=== PATIENT | male | born 1960 | race Caucasian/White ===

== ENCOUNTER 2021-07-05 07:35 | Outpatient (REF) | payer BC, SELFPAY ==
[2021-07-05 10:41] LABS: MANUAL DIFF FLAG NO
[2021-07-05 10:48] LABS: Basophils Percent Auto 0.8 % (0-2); Eosinophils Absolute Auto 0.1 X10*3/uL (0.0-0.4); Eosinophils Percent Auto 2.5 % (0-4); Hematocrit 41.4 % (42-52); Hemoglobin 14.2 g/dl (14.0-18.0); Imm Gran Abs Auto 0.01 X10*3/uL (0.00-0.03); Imm Gran Pct Auto 0.2 % (0.0-0.4); Mean Corpuscular HGB Conc 34.3 g/dl (31.0-36.0); Mean Corpuscular Hemoglobin 33.1 pg (27.0-33.0); Mean Corpuscular Volume 96.5 fL (80-98); Mean Platelet Volume 9.7 fL (9.4-12.4); Monocytes Absolute Auto 0.5 X10*3/uL (0.1-1.2); Neutrophils Absolute Auto 2.6 X10*3/uL (2.0-8.3); Neutrophils Percent Auto 49.5 % (45-73); Platelet Count 171 X10*3/uL (160-400); Red Blood Count 4.29 X10*6/uL (4.60-5.80); Red Cell Distribution Width 12.9 % (11.0-16.0); White Blood Count 5.2 X10*3/uL (4.8-10.8)
[2021-07-05 10:59] LABS: Alanine Aminotransferase 13 U/L (0-40); Albumin Level 4.1 g/dL (3.5-5.0); Alkaline Phosphatase 44 U/L (39-117); Anion Gap 11 (12-20); Aspartate Amino Transferase 17 U/L (5-37); Bilirubin Total 0.6 mg/dL (0.0-1.0); Blood Urea Nitrogen 15 mg/dL (9-16); Calcium 9.5 mg/dL (8.4-10.2); Carbon Dioxide 27 mmol/L (22-29); Chloride 106 mmol/L (96-108); Cholesterol 204 mg/dL; Estimated Glomerular Filt Rate > 60; Glucose Fasting 95 mg/dL (60-99); HDL Cholesterol 46 mg/dL; LDL Cholesterol Calculated 141 mg/dl; Potassium 4.3 mmol/L (3.3-5.1); Sodium 140 mmol/L (135-145); Total Protein 6.6 g/dL (6.5-8.0); Triglycerides 87 mg/dL
[2021-07-05 11:16] LABS: ~HepC Num1 0.13 S/CO (0.00-0.79); ~Hepatitis C Antibody Nonreactive (Nonreactive)
[2021-07-05 11:20] LABS: Prostate Specific Antigen 0.53 ng/mL (<0.05-4.0); Vitamin D 25-OH Total 27.5 ng/mL (>30)
== END 2021-07-05 07:36 | disposition home or self-care (01) ==
LOC: HO.MANLDS 07:35
PROVIDERS: PCP Internal Medicine; Visit Provider Internal Medicine
DX: Z00.00 Encounter for general adult medical examination without abnormal findings (principal); Z12.5 Encounter for screening for malignant neoplasm of prostate; Z11.59 Encounter for screening for other viral diseases
CPT/HCPCS: 36415; 80053; 80061; 82306; 84153; 85025; 86803

== ENCOUNTER 2022-12-10 07:54 | Outpatient (REF) | payer BC, SELFPAY ==
[2022-12-10 11:34] LABS: MANUAL DIFF FLAG NO
[2022-12-10 12:01] LABS: Basophils Percent Auto 0.6 % (0-2); Eosinophils Absolute Auto 0.1 X10*3/uL (0.0-0.4); Eosinophils Percent Auto 2.6 % (0-4); Hematocrit 44.6 % (42.0-52.0); Hemoglobin 15.1 g/dl (14.0-18.0); Imm Gran Abs Auto 0.01 X10*3/uL (0.00-0.03); Imm Gran Pct Auto 0.2 % (0.0-0.4); Lymphocytes Absolute Auto 2.2 X10*3/uL (1.2-4.9); Lymphocytes Percent Auto 39.7 % (20-40); Mean Corpuscular HGB Conc 33.9 g/dl (31.0-36.0); Mean Corpuscular Volume 94.5 fL (80.0-98.0); Mean Platelet Volume 10.5 fL (9.4-12.4); Monocytes Absolute Auto 0.5 X10*3/uL (0.1-1.2); Monocytes Percent Auto 9.4 % (2-11); Neutrophils Absolute Auto 2.6 x10*3/uL (2.0-8.3); Neutrophils Percent Auto 47.5 % (45-73); Platelet Count 167 X10*3/uL (160-400); Red Blood Count 4.72 X10*6/uL (4.60-5.80); Red Cell Distribution Width 12.3 % (11.0-16.0); White Blood Count 5.4 X10*3/uL (4.8-10.8)
[2022-12-10 13:17] LABS: Alanine Aminotransferase 28 U/L (0-40); Albumin Level 4.2 g/dL (3.5-5.0); Alkaline Phosphatase 46 U/L (39-117); Anion Gap 16 (12-20); Aspartate Amino Transferase 25 U/L (5-37); Bilirubin Total 0.8 mg/dL (0.0-1.0); Blood Urea Nitrogen 17 mg/dL (9-16); Calcium 9.1 mg/dL (8.4-10.2); Carbon Dioxide 23 mmol/L (22-29); Chloride 105 mmol/L (96-108); Cholesterol 197 mg/dL; Estimated Glomerular Filt Rate > 60; Glucose Random 95 mg/dL (60-115); HDL Cholesterol 43 mg/dL; LDL Cholesterol Calculated 133 mg/dl; Potassium 4.3 mmol/L (3.3-5.1); Sodium 140 mmol/L (135-145); Total Protein 6.8 g/dL (6.5-8.0); Triglycerides 105 mg/dL
[2022-12-10 13:48] LABS: Prostate Specific Antigen 0.56 ng/mL (<0.05-4.0)
== END 2022-12-10 07:55 | disposition home or self-care (01) ==
LOC: HO.MANLDS 07:54
PROVIDERS: Visit Provider Internal Medicine
DX: Z00.00 Encounter for general adult medical examination without abnormal findings (principal); Z12.5 Encounter for screening for malignant neoplasm of prostate
CPT/HCPCS: 36415; 80053; 80061; 82306; 84153; 84443; 85025

== ENCOUNTER 2023-12-30 07:32 | Outpatient (REF) | payer BC, SELFPAY ==
[2023-12-30 12:44] LABS: MANUAL DIFF FLAG NO
[2023-12-30 13:07] LABS: Basophils Absolute Auto 0.1 X10*3/uL (0.0-0.2); Basophils Percent Auto 0.8 % (0-2); Eosinophils Absolute Auto 0.2 X10*3/uL (0.0-0.4); Eosinophils Percent Auto 2.7 % (0-4); Hematocrit 43.7 % (42.0-52.0); Hemoglobin 14.6 g/dl (14.0-18.0); Imm Gran Abs Auto 0.01 X10*3/uL (0.00-0.03); Imm Gran Pct Auto 0.2 % (0.0-0.4); Lymphocytes Absolute Auto 2.3 X10*3/uL (1.2-4.9); Lymphocytes Percent Auto 37.3 % (20-40); Mean Corpuscular HGB Conc 33.4 g/dl (31.0-36.0); Mean Corpuscular Hemoglobin 32.1 pg (27.0-33.0); Mean Platelet Volume 9.7 fL (9.4-12.4); Monocytes Absolute Auto 0.5 X10*3/uL (0.1-1.2); Monocytes Percent Auto 8.1 % (2-11); Neutrophils Absolute Auto 3.2 x10*3/uL (2.0-8.3); Neutrophils Percent Auto 50.9 % (45-73); Platelet Count 189 X10*3/uL (160-400); Red Blood Count 4.55 X10*6/uL (4.60-5.80); Red Cell Distribution Width 13.2 % (11.0-16.0); White Blood Count 6.2 X10*3/uL (4.8-10.8)
[2023-12-30 13:08] LABS: Alanine Aminotransferase 28 U/L (0-40); Albumin Level 4.3 g/dL (3.5-5.0); Alkaline Phosphatase 46 U/L (39-117); Anion Gap 11 (12-20); Aspartate Amino Transferase 28 U/L (5-37); Bilirubin Total 0.7 mg/dL (0.0-1.0); Blood Urea Nitrogen 18 mg/dL (9-16); Calcium 9.4 mg/dL (8.4-10.2); Carbon Dioxide 26 mmol/L (22-29); Chloride 105 mmol/L (96-108); Cholesterol 144 mg/dL (<200); Estimated Glomerular Filt Rate > 60; Glucose Random 88 mg/dL (60-115); HDL Cholesterol 52 mg/dL (>40); LDL Cholesterol Calculated 68 mg/dL (<100); Potassium 4.2 mmol/L (3.3-5.1); Sodium 138 mmol/L (135-145); Total Protein 7.5 g/dL (6.5-8.0); Triglycerides 122 mg/dL (<150)
[2023-12-30 13:25] LABS: Prostate Specific Antigen 0.53 ng/mL (<0.05-4.0)
== END 2023-12-30 07:33 | disposition home or self-care (01) ==
LOC: HO.MANLDS 07:32
PROVIDERS: Visit Provider Internal Medicine
DX: Z00.00 Encounter for general adult medical examination without abnormal findings (principal); Z12.5 Encounter for screening for malignant neoplasm of prostate; Z13.6 Encounter for screening for cardiovascular disorders
CPT/HCPCS: 36415; 80053; 80061; 84153; 85025

== ENCOUNTER 2025-02-28 11:23 | Outpatient (REF) | payer BC, SELFPAY ==
[2025-02-28 13:10] LABS: MANUAL DIFF FLAG NO
[2025-02-28 13:28] LABS: Basophils Absolute Auto 0.1 X10*3/uL (0.0-0.2); Basophils Percent Auto 0.8 % (0-2); Eosinophils Absolute Auto 0.1 X10*3/uL (0.0-0.4); Eosinophils Percent Auto 1.9 % (0-4); Hematocrit 42.1 % (42.0-52.0); Hemoglobin 14.1 g/dl (14.0-18.0); Imm Gran Abs Auto 0.01 X10*3/uL (0.00-0.03); Imm Gran Pct Auto 0.2 % (0.0-0.4); Lymphocytes Absolute Auto 2.1 X10*3/uL (1.2-4.9); Lymphocytes Percent Auto 33.5 % (20-40); Mean Corpuscular HGB Conc 33.5 g/dl (31.0-36.0); Mean Corpuscular Volume 95.7 fL (80.0-98.0); Mean Platelet Volume 9.4 fL (9.4-12.4); Monocytes Absolute Auto 0.6 X10*3/uL (0.1-1.2); Monocytes Percent Auto 9.7 % (2-11); Neutrophils Absolute Auto 3.4 x10*3/uL (2.0-8.3); Neutrophils Percent Auto 53.9 % (45-73); Platelet Count 169 X10*3/uL (160-400); Red Cell Distribution Width 13.1 % (11.0-16.0); White Blood Count 6.3 X10*3/uL (4.8-10.8)
--- OUTSIDE RECORDS SUMMARY | 2025-02-28 13:30 | XMS_ITS | Continuity of Care Document ---
Author Organization [place] - [facility], [facility] Address [address] [place] [address] [place] [address] Assessment No assessment recorded. Plan of Treatment Reminders Order Date Submit Date Provider Last Modified By Organization Details Last Modified Time Details Appointments ANNUAL EXAM 2024 11:00A M DR BROWNE Not available Not available Not available ANNUAL EXAM 2025 10:30A M DR BROWNE Not available Not available Not available Lab PSA, serum or plasma 2024 025 [facility], [address] [place] [address], [id number], 02/28/2025 11:20:05 lipid panel, blood 2024 025 [facility], [address] [place] [address], [id number], 02/28/2025 11:20:05 CMP, serum or plasma 2024 025 [facility], [address] [place] [address], [place], [id number], 02/28/2025 11:20:05 CBC w/ auto diff 2024 025 [facility], [address] [place] [address], [id number], 02/28/2025 11:20:05 Referral None recorded. Procedures None recorded. Surgeries None recorded. Imaging None recorded. Medication Orders sildenafi l 100 mg tablet 2024 025 [id number], [address] [place] [address], [id number], 02/28/2025 11:14:12 Patient TargetsNo targets recorded. Patient InstructionsNo instructions recorded. Reason for Referral None Reported. 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 Not Available [facility] 13:15:59 Pneumoni a caused by Streptoc occus 71845055 Active 2018 Not Available [facility] 13:15:59 Sepsis caused by Streptoc occus pneumoni ae 413017462 Active 2018 Not Available [facility] 13:15:59 Pericard itis 2084009 Active 2018 Not Available [facility] 13:15:59 Hypercho lesterol emia 54264095 Active 2018 Not Available [facility] 13:15:59 Coronary atherosc lerosis 813231863 Active 2022 Jeremy Browne, DO [address] [place] [address], [phone], [facility], [facility] 3 22:46:38 Psoriasi s 3025362 Active 2023 Jeremy Browne DO [address] [place] [address], [phone], [facility], [facility] 4 11:42:36 Primary erectile dysfunct ion 437560117 Active 2023 JESUS MANUEL BUI [address] [place] [address], [phone], [facility], [facility] 4 09:31:15 Secondar y erectile dysfunct ion 381548446 Active 2024 Jeremy Browne DO [address] [place] [address], [phone], [facility], [facility] 5 11:08:33 Problem Notes None recorded. Medical Equipment None Reported. Allergies No known drug allergies Medications Name Sig Start Date Stop Date Status Note LastModified by Organization Details LastModified Time atorvastati n 10 mg tablet TK 1 T PO QD 12/09 completed Not Available Not Available Not Available sildenafil 100 mg tablet Take 1 tablet every day by oral route as needed for 30 days. 2024 active Not Available Not Available Not Avai lable ketorolac 0.5 % eye drops active Not Available Not Available Not Available SB Low Dose ASA EC 81 mg tablet,obdulio yed release Take 1 tablet every day by oral route. active Not Available Not Available No t Available clobetasol 0.05 % topical ointment active Not Available Not Available Not Available calcipotrie ne 0.005 % topical ointment 12/29 completed Not Available Not Available Not Available ezetimibe 10 mg tablet TAKE 1 TABLET BY MOUTH EVERY DAY active Not Available Not Available No t Available Laxative (bisacodyl) 5 mg tablet TAKE 4 TABLETS BY MOUTH DIRECTED FOR 1 DAY 12/29 completed Not Available Not Available Not Available rosuvastati n 5 mg tablet TAKE 1 TABLET BY MOUTH EVERY DAY 12/09 completed Not Available Not Available Not Available rosuvastati n 10 mg tablet TAKE 1 TABLET BY MOUTH EVERY DAY DIRECTED active Not Available Not Available No t Available tadalafil 20 mg tablet TAKE 1 TABLET BY MOUTH DAILY NEEDED 02/28 completed Not Available Not Available Not Available Gas Relief Extra Strength 125 mg chewable tablet TAKE 3 TABLET BY MOUTH DIRECTED FOR 1 DAY 03/07 completed Not Available Not Available Not Available GaviLyte-G 236 gram-22.74 gram-6.74 gram-5.86 gram oral solution MIX AND DRINK DIRECTED 12/29 completed Not Available Not Available Not Available Fluarix Quad (PF) 60 mcg (15 mcg x 4)/0.5 mL IM syringe ADM 0.5ML IM UTD 12/09 completed Not Available Not Available Not Available Zoryve 0.3 % topical cream APPLY TOPICALLY TO THE AFFECTED AREA EVERY DAY active Not Available Not Available No t Available Vitals Date Recorded Body height Body mass index (BMI) Body weight Heart rate Oxygen saturation Oxygen saturation in Arterial blood by Pulse oximetry Systolic blood pressure Diastolic blood pressure Provider Name and Address Organization Details Last Updated DateTime 04/29/202 5 177.8 cm 33.7 kg/m2 123107. 21 g 77 /min 97 % 97 % 140 mm[Hg] 80 mm[Hg] Angelika Huntley [facility] 10:45:47 Social History Question Answer Notes LastModified by Organizat ion Details LastModified Time Tobacco Smoking Status Former Smoker Melonie chang [facility] 12/09/2022 11:27:57 What Is Your Level Of Alcohol Consumption? Moderate 6 Beers Per Week [id number] Information not available 09/04/2020 What Is Your Level Of Caffeine Consumption? Moderate 2-3 Cups Per Day [id number] Information not available 09/04/2020 What Was The Date Of Your Most Recent Tobacco Screening? 02/28/2025 Information not available 02/28/2025 Sex: Unknown Functional Status Question Answer Note LastModified by Organization D etails LastModified Time What is your exercise level? None [id number] Information not available 09/04/2020 Mental Status None recorded. Family History Nothing Reported. Medical History No medical history recorded. Immunizations Vaccine Type Date Status Note Provider Nam e and Address Organization Details Recorded Time Influenza, split virus, quadrivalent, preservative 08/23/20 21 completed Jeremy Browne DO [address] [place] [address], [phone], [facility], [facility] 08/25/2021 09:30:31 COVID-19, mRNA, LNP-S, PF, 30 mcg/0.3 mL dose 10/31/20 21 completed Jeremy Browne DO [address] [place] [address], [phone], [facility], [facility] 11/02/2021 09:11:31 Influenza, split virus, quadrivalent, preservative 08/18/[address] [facility] 08/18/2022 10:16:54 influenza nasal, unspecified formulation 08/26/[address] [facility] 08/26/2023 16:03:37 Influenza, split virus, quadrivalent, preservative 09/08/20 18 completed Miri chang, [place] - [facility] 11/26/2018 11:20:41 pneumococcal polysaccharide PPV23 09/08/20 [facility] 11:20:54 Influenza, split virus, quadrivalent, preservative 09/06/20 [facility] 08:32:40 Influenza, split virus, quadrivalent, preservative 07/12/20 20 completed Jeremy Browne DO [address] [place] [address], [phone], [facility] 07/13/2020 13:41:33 COVID-19, mRNA, LNP-S, PF, 100 mcg/0.5mL dose or 50 mcg/0.25mL dose 02/07/20 21 completed Jeremy Browne DO [address] [place] [address], [phone], [facility] 02/07/2021 19:03:29 Past Encounters Encounter ID Performer Location Encounter Start Date Encounter Closed Date Diagnosis/Indication Diagnosis SNOMED-CT Code Diagnosis ICD10 Code Diagnosis Note [id number] Jeremy Browne DO [facility] [address] [address] 02/28/2025 10:37:37 02/28/2025 11:46:08 Active or passive immunization 563741576 Z23 is UTD Hypercholesterolemia 136 76530 E78.2 rosuvastat in Coronary atherosclerosis 669904476 I25.84 please eval pt with a very concerning coronary calcium score involving his LAD Screening for malignant neoplasm of prostate 259084738 Z12.5 has been stable Secondary erectile dysfunction 884482006 N52.9 Well adult 683954301 Z00 .00 is stable and doing well now on rosuvastat Health Concerns Section Related Observation LastModified by Organization Detai ls LastModified Time None Recorded Concern Status LastModified by Organization Details LastModified Time None Recorded Payers Encounter Date Sequence Insurance Name Policy Number Policy Monsivais Covered Member ID Monsivais Member ID Guarantor Name 02/28/2025 1 [place] [id number] José Silvestre [id number] José Silvestre Notes Date Note Type Note Provider Name and Address Organization Details Recorded Time 02/29/20 25 text/htm l Annual WellnessReported bypatient.Diet and Nutrition:healthy diet Fracture Risk:no history of fractures; no recent explained fracture; no sudden unexplained fractures; no previous musculoskeletal injuries Physical Activity:exercises on a regular basis; recent increase in physical activity; good physical condition Additional Lifestyle Factors:no tobacco use; no alcohol intake; stopped drinking alcohol Depression Risk:never feels sad, empty, or tearful; no loss of interest in activities; no significant changes in weight; no sleep disturbances or insomnia; no agitation; no loss of energy; no feelings of worthlessness or guilt; no thoughts of suicide; no history of depression; no history of mood disorders Hearing:no loss of hearing Vision:no vision problemsCare Management - Coronary Artery Disease (CAD)Reported bypatient.Self Care:not under emotional stress Severity:symptoms are improving; does not interfere with daily activities Associated Symptoms:no chest pain; no shortness of breath; no left arm pain; no back pain; no neck pain; no left shoulder pain; no right shoulder pain; no numbness; no sweatsCare Management - HyperlipidemiaReported bypatient.Control:usually well controlled; improving; at goal Complications:no coronary artery disease; no heart attack; no cardiovascular disease; no pancreatitis; no stroke Jeremy Browne, DO [address], [place], [address], [facility] 02/28/2025 11:16:05
--- OUTSIDE RECORDS SUMMARY | 2025-02-28 13:30 | XMS_ITS | Data Portability ---
Author Organization [facility] Service Address [address] [place] [address] Assessment No assessment recorded. Plan of Treatment Reminders Order Date Submit Date Provider Last Modified By Organization Details Last Modified Time Details Appointments ANNUAL EXAM 2024 11:00A M DR BROWNE Not available Not available Not available ANNUAL EXAM 2025 10:30A M DR BROWNE Not available Not available Not available Lab PSA, serum or plasma 2024 025 [facility], [address] [place] [address], [id number], 02/28/2025 11:20:05 lipid panel, blood 2024 025 [facility], [address] [place] [address], [id number], 02/28/2025 11:20:05 CMP, serum or plasma 2024 025 [facility], [address] [place] [address], [id number], 02/28/2025 11:20:05 CBC w/ auto diff 2024 025 [facility], [address] [place] [address], [id number], 02/28/2025 11:20:05 CMP, serum or plasma 2023 024 [facility], [address] [place] [address], [id number], 12/31/2023 11:15:04 PSA, serum or plasma 2023 024 [facility], [address] [place] [address], [id number], 12/29/2023 11:52:00 CBC w/ auto diff 2023 024 [facility], [address] [place] [address], [id number], 12/29/2023 11:52:00 lipid panel, blood 2023 024 [facility], [address] [place] [address], [id number], 12/29/2023 11:52:00 CMP, serum or plasma 2022 023 [facility], [address] [place] [address], [id number], 12/11/2022 11:47:03 lipid panel, blood 2022 023 [facility], [address] [place] [address], [id number], 12/09/2022 12:05:16 CBC w/ auto diff 2022 023 [facility], [address] [place] [address], [id number], 12/09/2022 12:05:16 PSA, serum or plasma 2022 023 [facility], [address] [place] [address], [id number], 12/09/2022 12:05:17 vitamin D, 25-hydrox y, total, serum 2022 023 [facility], [address] [place] [address], [id number], 12/09/2022 12:05:16 TSH, serum or plasma 2022 023 [facility], [address] [place] [address], [id number], 12/09/2022 12:05:17 CMP, serum or plasma 2020 021 [facility], [address] [place] [address], [id number], 07/05/2021 11:37:34 CBC w/ auto diff 2020 021 [facility], [address] [place] [address], [place], [address], 07/05/2021 11:37:34 lipid panel, blood 2020 021 [facility], [address] [place] [address], [id number], 07/05/2021 11:37:34 PSA, serum or plasma 2020 021 [facility], [address] [place] [address], [place], [address], 07/08/2021 11:12:15 hepatitis C Ab, serum 2020 021 [facility], [address] [place] [address], [id number], 07/08/2021 11:12:15 vitamin D, 25-hydrox y, total, serum 2020 021 [facility], [address] [place] [address], [id number], 07/08/2021 11:12:15 Referral otolaryng ologist referral - profoundl y blocked with discomfor t- please schedule elaina 2020 021 ace Givens MD, [address] [place] [address], [address], 07/10/2021 08:39:02 Procedures None recorded. Surgeries None recorded. Imaging CT, heart, w/o contrast, w/ coronary calcium score 2022 023 [facility], [address] [facility], [place], [address], 12/17/2022 08:26:38 Medication Orders sildenafi l 100 mg tablet 2024 025 [facility] [employer] [facility][id number], [address], [place], [id number], 02/28/2025 11:14:12 tadalafil 20 mg tablet 2023 025 [facility] #[id number], [address], [place], [id number], 02/28/2025 11:05:12 rosuvasta tin 10 mg tablet 2023 024 [facility] #[id number], [address], [place], [id number], 03/07/2024 09:30:15 ezetimibe 10 mg tablet 2023 024 [facility] [employer] [facility][id number], [address], [place], [id number], 03/07/2024 09:30:[address] 0.3 % topical cream 2023 024 [facility] [employer] [facility][id number], [address], [place], [id number], 12/29/2023 11:50:45 tadalafil 20 mg tablet 2022 023 [email or web address] [facility] [employer] [facility] #[id number], [address], [place], [id number], 02/28/2025 11:04:49 Patient TargetsNo targets recorded. 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 [facility] [address] [place], [address], 01/05/2023 16:39:12 Result Notes None recorded. Problems Name Problem SNOMED Code Status Onset Date Resolution Date Notes Provider Name and Address Organization Details Recorded Time Neuropat hy 627425068 Active 2018 bilateral R>L occured after sepsis Not Available [facility] 13:15:59 Pneumoni a caused by Streptoc occus 67747548 Active 2018 Not Available [facility] 13:15:59 Sepsis caused by Streptoc occus pneumoni ae 332601419 Active 2018 Not Available [facility] 13:15:59 Pericard itis 7987734 Active 2018 Not Available [facility] 13:15:59 Hypercho lesterol emia 29003269 Active 2018 Not Available [facility] 13:15:59 Coronary atherosc lerosis 731924770 Active 2022 Jeremy Browne DO [address] [place] [address], [address], [facility] 3 22:46:38 Psoriasi s 0097560 Active 2023 Jeremy Browne DO [address] [place] [address], [address], [facility] 4 11:42:36 Primary erectile dysfunct ion 589726562 Active 2023 ADILENE VARMA, JESUS MANUEL [address] [facility], [place], [address], [facility] 4 09:31:15 Secondar y erectile dysfunct ion 225910698 Active 2024 Jeremy Browne, [address] [facility], [place], [address], [facility] 5 11:08:33 Problem Notes None recorded. Procedures Surgical History None recorded. Imaging Results Imaging Date Name Status LastModified by Organiz ation Details LastModified Time 12/25/2022 CT, heart, w/o contrast, w/ coronary calcium score completed [facility] [address] [place], [address], 01/05/2023 16:39:12 Procedure Notes None recorded. Medical Equipment None Reported. [...] height Body mass index (BMI) Body weight Oxygen saturation Oxygen saturation in Arterial blood by Pulse oximetry Heart rate Systolic blood pressure Diastolic blood pressure Provider Name and Address Organization Details Last Updated DateTime 1 179.07 cm 33.9 kg/m2 067247. 65 g 96 % 96 % 86 /min 130 mm[Hg] 80 mm[Hg] Concepcion Linda [facility] 1 09:02:49 Date Recorded Body height Body mass index (BMI) Body weight Heart rate Oxygen saturation Oxygen saturation in Arterial blood by Pulse oximetry Systolic blood pressure Diastolic blood pressure Provider Name and Address Organization Details Last Updated DateTime 3 177.8 cm 34.3 kg/m2 647664. 65 g 67 /min 97 % 97 % 136 mm[Hg] 90 mm[Hg] Melonie Valdivia [facility] 3 11:29:05 Date Recorded Body height Body mass index (BMI) Body weight Heart rate Oxygen saturation Oxygen saturation in Arterial blood by Pulse oximetry Systolic blood pressure Diastolic blood pressure Provider Name and Address Organization Details Last Updated DateTime 4 177.8 cm 33.4 kg/m2 571092. 02 g 78 /min 98 % 98 % 118 mm[Hg] 78 mm[Hg] Jeremy Browne, DO [address] [place], [address], [facility] 4 11:10:00 Date Recorded Body height Body mass index (BMI) Body weight Heart rate Oxygen saturation Oxygen saturation in Arterial blood by Pulse oximetry Systolic blood pressure Diastolic blood pressure Provider Name and Address Organization Details Last Updated DateTime 4 177.8 cm 33.6 kg/m2 245903. 97 g 78 /min 97 % 97 % 126 mm[Hg] 86 mm[Hg] Gem Mijares [facility] 4 09:16:21 Date Recorded Body height Body mass index (BMI) Body weight Heart rate Oxygen saturation Oxygen saturation in Arterial blood by Pulse oximetry Systolic blood pressure Diastolic blood pressure Provider Name and Address Organization Details Last Updated DateTime 5 177.8 cm 33.7 kg/m2 209040. 21 g 77 /min 97 % 97 % 140 mm[Hg] 80 mm[Hg] Angelika Huntley [facility] 5 10:45:47 Social History Question Answer Notes LastModified by Organizat ion Details LastModified Time Tobacco Smoking Status Former Smoker Melonie chang [facility] 12/09/2022 11:27:57 What Is Your Level Of Alcohol Consumption? Moderate 6 Beers Per Week [id number] Information not available 09/04/2020 What Is Your Level Of Caffeine Consumption? Moderate 2-3 Cups Per Day [id number] Information not available 09/04/2020 What Was The Date Of Your Most Recent Tobacco Screening? 02/28/2025 [email or web address] Information not available 02/28/2025 Sex: Unknown Functional Status Question Answer Note LastModified by Organization D etails LastModified Time What is your exercise level? None [id number] Information not available 09/04/2020 Mental Status None recorded. Family History Nothing Reported. Medical History No medical history recorded. Immunizations Vaccine Type Date Status Note Provider Nam e and Address Organization Details Recorded Time Influenza, split virus, quadrivalent, preservative 08/23/20 21 completed Jeremy Browne, DO [address] [facility], [place], [address], [facility] 08/25/2021 09:30:31 COVID-19, mRNA, LNP-S, PF, 30 mcg/0.3 mL dose 10/31/20 21 completed Jeremy Browne DO [address] [place] [address], [address], [facility] 11/02/2021 09:11:31 Influenza, split virus, quadrivalent, preservative 08/18/20 [facility] 10:16:54 influenza nasal, unspecified formulation 08/26/20 23 completed Gregg chang [facility] 08/26/2023 16:03:37 Influenza, split virus, quadrivalent, preservative 09/08/20 18 completed Miri chang, [facility] 11/26/2018 11:20:41 pneumococcal polysaccharide PPV23 09/08/20 18 [facility]/26[facility] 11:20:54 Influenza, split virus, quadrivalent, preservative 09/06/20 [facility] 09/09[facility] 08:32:40 Influenza, split virus, quadrivalent, preservative 07/12/20 20 completed Jeremy Browne DO [address] [place] [address], [address], [facility] 07/13/2020 13:41:33 COVID-19, mRNA, LNP-S, PF, 100 mcg/0.5mL dose or 50 mcg/0.25mL dose 02/07/20 21 completed Jeremy Browne DO [address] [place] [address], [phone], [facility] 02/07/2021 19:03:29 Past Encounters Encounter ID Performer Location Encounter Start Date Encounter Closed Date Diagnosis/Indication Diagnosis SNOMED-CT Code Diagnosis ICD10 Code Diagnosis Note [id number] Jeremy Browne DO [facility] [address],[place] [address] 11/26/2018 10:34:00 11/26/2018 12:38:22 Adult health examination 243602339 Z00.01 reviewed lab in detail; will rechk chlest in 6 mo Neuropathy 857587296 G62 .9 status quo unchanged since septic event Pain of ri ght shoulder joint 5563555444 0017588 M25.511 refer to ortho Pain of le ft shoulder joint 6738158939 1873444 M25.512 [id number] Jeremy Browne DO [facility] [address] [facility], [place] [address] 06/24/2019 15:56:13 06/24/2019 16:36:14 Neuropathy 279694124 G62.9 status quo unchanged since septic event Hypercholesterolemia 136 82187 E78.00 will wait for one more lab check if not improved will have to treat [id number] Jeremy Browne DO [facility] [address] [facility], [place] [address] 12/27/2019 15:37:17 12/27/2019 16:51:31 Hypercholesterolemia 72682660 E78.00 will start atorvastat Primary er ectile dysfunction 567129694 N52.9 Adult heal th examination 414530371 Z00.01 reviewed lab in detail; will rechk chlest in 6 [place] [id number] Jeremy Browne DO [facility] Medicine [address] [place] [address], [place] [address] 06/27/2020 16:22:03 06/29/2020 10:14:19 Hypercholesterolemia 05216896 E78.00 [place] [id number] JESUS MANUEL BUI [facility] [address] [place] [address], [place] [address] 12/03/2020 09:44:10 12/03/2020 11:18:04 Exposure to SARS-CoV-2 877176571 Z20.822 will order test for COVID-19 through [facility] and fu with results Nasal congestion 0692020 0 R09.81 patient has mild symptoms thus far can use OTC medication s for symptom management , will call if acute sob, cough, fever develop Anterior rhinorrhea 4632 40925 J34.89 [place] [id number] Jereym Browne DO [facility] [address] [facility] [address] [address] 07/02/2021 08:47:38 07/02/2021 10:07:49 Active or passive immunization 938511070 Z23 is [facility] Adult heal th examination 882065049 Z00.00 reviewed lab in detail; will rechk chlest in 6 mo after starting the atorvastat in Impacted c erumen of bilateral ears 9130592174 594226 H61.23 will have him refered as this is severly impacted [id number] Jeremy Browne [facility] [address] [facility], [place] [address] 12/09/2022 11:21:01 12/09/2022 12:11:33 Active or passive immunization 299360469 Z23 is [facility] Adult [facility] th examination 962771181 Z00.00 reviewed lab in detail; he has stopped taking the atorvastat in with gi upset Primary er ectile dysfunction 174408960 N52.9 [id number] Jeremy Browne DO [facility] [address] [facility], [place] [address] 12/29/2023 11:04:13 12/29/2023 12:01:19 Active or passive immunization 129450335 Z23 is [facility] Adult heal th examination 425032921 Z00.00 is stable and doing well now on rosuvastat Hypercholesterolemia 136 47150 E78.00 will start rosuvastat in Psoriasis 9911969 L40.9 has not had luck with prior cream wishes to try the roflumials t as he has samples froma friend and is using on elbow [id number] JESUS MANUEL BUI [facility] [address] [facility], [place] [address] 03/07/2024 09:03:30 03/07/2024 10:20:27 Pre-surgery evaluation 255431021 Z01.818 The patient was seen in the office today for pre-op evaluation . All medical conditions on patient's problem list were addressed and are currently stable, no interventi on needed at this time. Based on history and physical performed, the patient is cleared for surgery. Depression screening 171 066705 Z13.31 stable Hypercholesterolemia 136 95358 E78.2 needs refill Primary er ectile dysfunction 591451629 N52.9 needs refill [id number] Jeremy Browne DO [facility] [address] [facility] [address],[place] [address] 02/28/2025 10:37:37 02/28/2025 11:46:08 Active or passive immunization 595214973 Z23 is UTD Hypercholesterolemia 136 33747 E78.2 rosuvastat in Coronary atherosclerosis 739030120 I25.84 please eval pt with a very concerning coronary calcium score involving his LAD Screening for malignant neoplasm of prostate 162668601 Z12.5 has been stable Secondary erectile dysfunction 995728435 N52.9 Well adult 108484883 Z00 .00 is stable and doing well now on rosuvastat Health Concerns Section Related Observation LastModified by Organization Detai ls LastModified Time None Recorded Concern Status LastModified by Organization Details LastModified Time None Recorded Advance Directives Directive None Recorded Payers Encounter Date Sequence Insurance Name Policy Number Policy Monsivais Covered Member ID Monsivais Member ID Guarantor Name 07/02/2021 1 [place] [id number] José Silvestre [id number] José Silvestre 12/09/2022 1 [place] [id number] José Silvestre [id number] José Silvestre 12/29/2023 1 [place] [id number] José Silvestre [id number] José Silvestre 03/07/2024 1 [place] [id number] José Silvestre [id number] José Silvestre 02/28/2025 1 [place] [id number] José Silvestre [id number] José Silvestre Notes Date Note Type Note Provider Name and Address Organization Details Recorded Time 07/02/20 21 text/htm l Annual WellnessReported bypatient.Diet and Nutrition:healthy [...] disorders Hearing:no loss of hearing Vision:no vision problemsNotes:note he he has had a cough originating in throat per pt for the last 10 mono fever no chills non productive relates it can occurs right after eating but can occur at any timeusually one cough and its donedoes have a prob with allergies latelyno heartburn also states he has been having a buzzing noise in his ear in both ears, present for a while and seemed to occur after his covid vaccine did have some discomfort in right ear Jeremy Garcia DO Naina [address] [place] [address], [address], [facility] 07/02/2021 09:34:50 12/09/19 23 text/htm l Annual WellnessReported bypatient.Diet and Nutrition:healthy [...] disorders Hearing:no loss of hearing Vision:no vision problemsNotes:doing ok no cp no sobsleep ok but having shoulder painbowels ok bladder okappetite good Jeremy IbrahimGab Browne DO [address] [place] [address], [address], [facility] 12/09/2022 12:06:09 12/29/19 24 text/htm l Annual WellnessReported bypatient.Diet and Nutrition:healthy [...] disorders Hearing:no loss of hearing Vision:no vision problems Jeremy Browne DO [address] [place], [address] 12/29/2023 11:58:53 03/07/20 24 text/htm l Pre-OpReported bypatient.Surgery to be Performed:bilateral cataract with Dr. Corbett Context/Condition Being Addressed:cataract Location:bilaterally Severity:severe Risk Factorsno cognitive impairment; no functional impairment; no malnutrition; no frailty; able to climb a flight of stairs (exercise capacity>4 METS); no obstructive sleep apnea; non-smoker; no alcohol misuse; no illicit drug use; no chronic cardiopulmonary condition; not obese Anesthesia hx:no hx of anesthesia complications; no allergy to anesthetic agents; no family history of anesthesia complications Functional Ability:able to walk up stairs; able to perform heavy work around the house; no difficulty walking up hills; able to walk 4 mph Post-Op Support:adequate assistance at home () JESUS MANUEL BUI [address] [place] [address], [address] 03/07/2024 09:32:29 02/29/20 25 text/htm l Annual WellnessReported bypatient.Diet [...] pancreatitis; no stroke Jeremy Browne, DO [address] [place], [address], [facility] 02/28/2025 11:16:05
[2025-02-28 13:40] LABS: Alanine Aminotransferase 32 U/L (0-40); Albumin Level 4.3 g/dL (3.5-5.0); Alkaline Phosphatase 36 U/L (39-117); Anion Gap 11 (12-20); Aspartate Amino Transferase 32 U/L (5-37); Bilirubin Total 0.6 mg/dL (0.0-1.0); Blood Urea Nitrogen 20 mg/dL (9-16); Calcium 9.2 mg/dL (8.4-10.2); Carbon Dioxide 25 mmol/L (22-29); Chloride 106 mmol/L (96-108); Cholesterol 143 mg/dL (<200); Estimated Glomerular Filt Rate > 60; Glucose Random 87 mg/dL (60-115); HDL Cholesterol 55 mg/dL (>40); LDL Cholesterol Calculated 66 mg/dL (<100); Potassium 4.2 mmol/L (3.3-5.1); Sodium 138 mmol/L (135-145); Total Protein 7.3 g/dL (6.5-8.0); Triglycerides 113 mg/dL (<150)
[2025-02-28 13:54] LABS: Prostate Specific Antigen 0.79 ng/mL (<0.05-4.0)
== END 2025-02-28 11:24 | disposition home or self-care (01) ==
LOC: HO.MANLDS 11:23
PROVIDERS: Visit Provider Internal Medicine
DX: Z12.5 Encounter for screening for malignant neoplasm of prostate (principal); E78.2 Mixed hyperlipidemia
CPT/HCPCS: 36415; 80053; 80061; 84153; 85025